=== PATIENT | male | born 1975 | race American Indian/Alaskan Native ===

== ENCOUNTER 2021-05-14 12:58 | Emergency (ER) | payer OTHER ==
[2021-05-14 13:15] VITALS: BP 139/82
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
== END 2021-05-14 14:58 | disposition home or self-care (01) ==
LOC: ED 12:58
DX: S40.852A Superficial foreign body of left upper arm, initial encounter (principal); L03.114 Cellulitis of left upper limb; X58.XXXA Exposure to other specified factors, initial encounter; Y93.89 Activity, other specified; Y92.89 Other specified places as the place of occurrence of the external cause; Y99.8 Other external cause status
CPT/HCPCS: 99281

== ENCOUNTER 2022-05-08 18:39 | Emergency (ER) | payer OTHER ==
[2022-05-08 18:50] VITALS: BP 126/84
[2022-05-09] MEDS ORDERED: KETOROLAC 10 MG TAB PO ONE (03:50)
--- NOTE | 2022-05-09 03:55 | XRay Report ---
XR knee 3V LT INDICATION / CLINICAL INFORMATION: fall, pain and swelling COMPARISON: None available. Marginal osteophytes noted along the margin of the lateral joint compartment. Mild loss of joint comp artment spaces additionally present. Intra-articular free body within the suprapatellar bursa. No acu te fracture. IMPRESSION: 1. No evidence of acute fracture. Signer Name: Amilcar Rose II, MD Signed: 05/09/2022 3:51 AM Workstation Name: [id number]
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
== END 2022-05-09 06:16 | disposition home or self-care (01) ==
LOC: ED 18:39
DX: M25.562 Pain in left knee (principal); Z98.890 Other specified postprocedural states; W01.0XXA Fall on same level from slipping, tripping and stumbling without subsequent striking against object, initial encounter; Y93.89 Activity, other specified; Y92.89 Other specified places as the place of occurrence of the external cause; Y99.0 Civilian activity done for income or pay
CPT/HCPCS: 99283